=== PATIENT | male | born 1990 | race Two or more races ===

== ENCOUNTER 2020-05-31 09:38 | Emergency (ER) | payer OTHER ==
[~2020-05-31] VITALS: Ht 182.9 cm; Wt 102.5 kg
== END 2020-05-31 18:01 | disposition home or self-care (01) ==
LOC: ER 09:38
DX: K57.92 Diverticulitis of intestine, part unspecified, without perforation or abscess without bleeding (principal); R10.31 Right lower quadrant pain

== ENCOUNTER 2025-01-10 07:02 | Day surgery (SDC) | payer OTHER ==
[2025-01-03 10:04] VITALS: BP 140/84
[~2025-01-10] VITALS: Ht 182.9 cm; Wt 99.8 kg
[2025-01-10] MEDS ORDERED: CEFTRIAXONE SODIUM 2,000 MG VIAL ONE (10:42)
[2025-01-10] MEDS ORDERED: ENOXAPARIN SODIUM 40 MG/0.4 ML SYRINGE SUBCUTANEO ONE (10:42)
[2025-01-10] MEDS ORDERED: METRONIDAZOLE/SODIUM CHLORIDE 500 MG/100 ML PIGGYBACK IV ONE (10:42)
[2025-01-10] MEDS ORDERED: SUGAMMADEX SODIUM 200 MG/2 ML VIAL IV ONE (14:39)
[2025-01-10] MEDS ORDERED: POLY119PG PO (15:53)
[2025-01-10] MEDS ORDERED: PERCOCET 5-3251 EACH PO (15:53)
[2025-01-10] MEDS ORDERED: NEURONTIN300 MG PO (15:53)
[2025-01-10] MEDS ORDERED: CELEBREX200MG PO (15:53)
== END 2025-01-10 18:50 | disposition home or self-care (01) ==
LOC: CIR.AMB 07:02
PROVIDERS: ATTEND Surgery
DX: K40.90 Unilateral inguinal hernia, without obstruction or gangrene, not specified as recurrent (principal)
CPT/HCPCS: 49650; C1781